=== PATIENT | female | born 1980 | race Caucasian/White ===

== ENCOUNTER → 2017-10-07 | Day surgery (SDC) | payer OTHER ==
--- NOTE | 2017-10-06 20:01 | History & Physical Pre-Op ---
General Information and HPI History of Present Illness: This patient is a 37-year-old 2 para 3 with chronic menorrhagia who desires endometrial ablation for control of her bleeding. Allergies/Medications Allergies: Coded Allergies: No Known Allergies (10/06/17) Home Med list Docusate Sodium 100 MG SGL 100 MG PO AT BEDTIME NEEDED PRN STOOL SOFTENER OXYCODONE HCL/ACETAMINOPHEN (Percocet 5-325 MG Tablet) 325 MG/5 MG TAB 1 TAB PO Q4P PRN PAIN SCALE 7-8 PNV95/FERROUS FUMARATE/FA ( Formula Tablet) 1 TAB TAB 1 TAB PO DAILY PREG (Reported) Yibuprofen (Motrin 800MG Tab) 800 MG TAB 800 MG PO Q6P PRN PAIN SCALE 4-6 Past History Surgical History Pertinent Surgical History: Review of Systems Review of Systems Constitutional: Reports: no symptoms. EENTM: Reports: no symptoms. Cardiovascular: Reports: no symptoms. Respiratory: Reports: no symptoms. GI: Reports: no symptoms. Genitourinary: Reports: no symptoms. Musculoskeletal: Reports: no symptoms. Skin: Reports: no symptoms. Neurological/Psychological: Reports: no symptoms. Hematologic/Endocrine: Reports: no symptoms. Immunologic/Allergic: Reports: no symptoms. All Other Systems: Reviewed and Negative Exam & Diagnostic Data Last 24 Hrs of Vital Signs/I&O Intake & Output 10/06 1600 10/06 0800 10/06 0000 Intake Total Output Total Balance Patient 140 lb Weight Physical Exam: HEENT: Normocephalic atraumatic Chest: Clear to auscultation bilaterally Cardiovascular: Normal S1-S2 Abdomen: Soft nontender nondistended Pelvic: Deferred OR Extremities: No clubbing cyanosis or edema Neurologic: Nonfocal Assessment/Plan Assessment/Plan: Menorrhagia Plan: D&C hysteroscopy NovaSure ablation As Ranked By This Provider Problem List: 1. Menorrhagia
[~2017-10-07] VITALS: Ht 162.6 cm; Wt 63.5 kg
[~2017-10-07] MED LIST: DOCUSATE SODIU100 MG PO; MOTRIN 800MG T800 MG PO; PERCOCET 325 MG1 TA2 PO; PRENATAL1 TA2 PO
--- NOTE | 2017-10-16 16:47 | Operative Report ---
Operative/Inv Procedure Report Surgery Date: 10/07/17 Name of Procedure: D&C hysteroscopy and NovaSure ablation Pre-Operative Diagnosis: Menorrhagia Post-Operative Diagnosis: Fibroid uterus Estimated Blood Loss: less than 50ml Surgeon/Computer Systems Software Engineer: Contreras Purdy MD Anesthesia: laryngeal mask airway Operative/Procedure Note Note: The patient was taken to the operating room placed on the OR table in the dorsal supine position. She was given adequate anesthesia and repositioned in modified dorsal lithotomy. She is prepped and draped in usual sterile fashion. A weighted speculum was inserted into the vagina and a single-tooth tenaculum was attached to the anterior lip of the cervix. The cervix was injected with 1% lidocaine with epinephrine 2-1/2 mL in each quadrant. An endocervical curettage is performed. The uterus was then sounded to 10 cm. The cervix was serially dilated to accommodate the hysteroscope. The hysteroscope was placed into the uterus and the saline infusion was activated. Hysteroscope revealed a large submucous myoma approximately 4 cm in size. An endocervical curettage was performed. The NovaSure apparatus was placed into the uterus and opened and activated for 90 seconds at 143 W power. At the end of the procedure the NovaSure was removed intact instrument removed hemostasis was verified. The patient was then awakened and sent to recovery in good condition. All needle, sponge, and inspected counts were correct at the end of the procedure 2.
== END ==
LOC: STS 09-09 07:00
DX: N92.1 Excessive and frequent menstruation with irregular cycle (principal); N84.1 Polyp of cervix uteri; D25.0 Submucous leiomyoma of uterus
CPT/HCPCS: 81025; 88305; J2250